=== PATIENT | female | born 1985 ===

== ENCOUNTER 2016-12-03 00:17 | Emergency (ER) | payer SELFPAY ==
[2016-12-03] MEDS: Ketorolac 60 MG/2 ML SDV IM ONE (01:41)
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
[2016-12-03 02:14] VITALS: BP 127/81
== END 2016-12-03 02:09 | disposition home or self-care (01) ==
LOC: MERGE 00:17 → MW.ED 00:17
DX: M26.609 Unspecified temporomandibular joint disorder, unspecified side (principal); F17.210 Nicotine dependence, cigarettes, uncomplicated
CPT/HCPCS: 96372; 99283; J1885